=== PATIENT | female | born 1990 | race Caucasian/White ===

== ENCOUNTER 2017-06-11 17:45 | Emergency (ER) | payer SELFPAY ==
--- NOTE | 2017-06-11 17:53 | EDM.PDOC ---
ED HPI GENERAL MEDICAL PROBLEM - General Chief Complaint: Lower Extremity Injury/Pain Stated Complaint: PAIN LT ANKLE Time Seen by Provider: 06/11/17 17:52 Source of Information: Reports: Patient History Limitations: Reports: No Limitations - History of Present Illness INITIAL COMMENTS - FREE TEXT/NARRATIVE: HISTORY AND PHYSICAL: History of present illness: Patient is a 27-year-old female who presents to the emergency room today with complaints of left ankle pain and right wrist pain. She states earlier she fell down 2 or 3 steps which caused her to roll her left ankle and she caught herself with her right hand. He is complaining of left lateral ankle discomfort which increases with weight bearing. She previously had a ganglion cyst removed from the right wrist, a keloid scar is noted. She points to the area of the scar and states that the pain is located there, unsure if the cyst is returning or if she re-injured herself. She denies hitting her head or any loss of consciousness. Review of systems: As per history of present illness and below otherwise all systems reviewed and negative. Past medical history: As per history of present illness and as reviewed below otherwise noncontributory. Surgical history: As per history of present illness and as reviewed below otherwise noncontributory. Social history: No reported history of drug or alcohol abuse. Family history: As per history of present illness and as reviewed below otherwise noncontributory. Physical exam: General: Well-developed and well-nourished 27-year-old female. Nontoxic appearing. Alert and oriented. HEENT: Atraumatic, normocephalic, pupils equal and reactive bilaterally, negative for conjunctival pallor or scleral icterus, mucous membranes moist, throat clear, neck supple, nontender, trachea midline. No drooling or trismus noted. No meningeal signs Lungs: Clear to auscultation, breath sounds equal bilaterally, chest nontender. Heart: S1S2, regular rate and rhythm without overt murmur Abdomen: Soft, nondistended, nontender. Negative for masses or hepatosplenomegaly. Negative for costovertebral tenderness. Pelvis: Stable nontender. Genitourinary: Deferred. Rectal: Deferred. Skin: Intact, warm, dry. No lesions or rashes noted. Extremities: Moves all extremities per self without difficulty or deficits. Does have some left ankle discomfort when palpating on the lateral malleolus. No soft tissue swelling or edema noted. Strong pedal pulses bilaterally. Right wrist has some discomfort when palpating over a scar near the anterior radius. Strong grasp strength, good flexion/extension. Strong radial pulses bilaterally. +CMS. Cap refill less than 3 seconds. She is negative for cords or calf pain. Neurovascular unremarkable. Neuro: Awake, alert, oriented. Cranial nerves II through XII unremarkable. Cerebellum unremarkable. Motor and sensory unremarkable throughout. Exam nonfocal. Notes: X-ray shows mild soft tissue swelling of the wrist. No fracture or subluxation. X-ray is normal with no fracture or dislocations. Will provide her with a stirrup splint for the ankle and a cock up wrist splint for comfort for the wrist. Supportive care measures were reviewed. She voices understanding and is agreeable to plan of care. She denies any further questions at this time Diagnostics: Xray left ankle; right wrist Therapeutics: Ice, cock-up wrist splint, stirrup splint, crutches Impression: Left ankle injury Right wrist contusion Plan: 1. Rest, ice, elevate the affected extremities. Please wear the wrist splint and ankle brace as needed for comfort. 2. Tylenol and/or Ibuprofen as needed for pain management. 3. Follow up with the orthopedic provider in the next couple days if you continue to have pain. Return to the ED as needed and as discussed. Definitive disposition and diagnosis as appropriate pending reevaluation and review of above. Left Ankle Pain Score (Numeric/FACES): 6 - Related Data Allergies Allergy/AdvReac Type Severity Reaction Status Date / Time No Known Allergies Allergy Verified 06/11/17 17:53 Home Meds: Home Meds . [No Known Home Meds] 06/11/17 [History] Review of Systems - Review of Systems Review Of Systems: ROS reveals no pertinent complaints other than HPI. ED EXAM, GENERAL - Physical Exam Exam: See Below (See dictation) Course - Vital Signs Last Recorded V/S: Last Vital Signs Temp 98.0 F 06/11/17 17:51 Pulse 64 06/11/17 17:51 Resp 20 06/11/17 17:51 BP 114/61 06/11/17 17:51 Pulse Ox 100 06/11/17 17:51 - Orders/Labs/Meds Orders: Active Orders 24 hr Category Date Time Status Ankle 2V Lt [CR] Stat Exams 06/11/17 18:05 Ordered Wrist 2V Rt [CR] Stat Exams 06/11/17 18:05 Ordered Departure - Departure Time of Disposition: 18:37 Disposition: Home, Self-Care 01 Clinical Impression: Contusion of wrist, right Qualifiers: Encounter type: initial encounter Qualified Code(s): S60.211A - Contusion of right wrist, initial encounter Left ankle injury Qualifiers: Encounter type: initial encounter Qualified Code(s): S99.912A - Unspecified injury of left ankle, initial encounter - Discharge Information Referrals: PCP,None [Primary Care Provider] - Forms: ED Department Discharge Additional Instructions: The following information is given to patients seen in the emergency department who are being discharged to home. This information is to outline your options for follow-up care. We provide all patients seen in our emergency department with a follow-up referral. The need for follow-up, as well as the timing and circumstances, are variable depending upon the specifics of your emergency department visit. If you don't have a primary care physician on staff, we will provide you with a referral. We always advise you to contact your personal physician following an emergency department visit to inform them of the circumstance of the visit and for follow-up with them and/or the need for any referrals to a consulting specialist. The emergency department will also refer you to a specialist when appropriate. This referral assures that you have the opportunity for follow-up care with a specialist. All of these measure are taken in an effort to provide you with optimal care, which includes your follow-up. Under all circumstances we always encourage you to contact your private physician who remains a resource for coordinating your care. When calling for follow-up care, please make the office aware that this follow-up is from your recent emergency room visit. If for any reason you are refused follow-up, please contact the [facility] Emergency Department at and asked to speak to the emergency department charge nurse. [facility] [address] [place] [id number] [facility] [address], [address] [place] [address] 1. Rest, ice, elevate the affected extremities. Please wear the wrist splint and ankle brace as needed for comfort. 2. Tylenol and/or Ibuprofen as needed for pain management. 3. Follow up with the orthopedic provider in the next couple days if you continue to have pain. Return to the ED as needed and as discussed. - My Orders Last 24 Hours: My Active Orders 06/11/17 18:05 Ankle 2V Lt [CR] Stat Wrist 2V Rt [CR] Stat - Assessment/Plan Last 24 Hours: My Active Orders 06/11/17 18:05 Ankle 2V Lt [CR] Stat Wrist 2V Rt [CR] Stat
--- NOTE | 2017-06-12 09:33 | CR ---
EXAM DATE: 06/11/17 PATIENT'S AGE: 27 Patient: SABRINA GOMEZ Facility: [place], [place] Site . Site : 1990 Study: XRay Extremity Right Wrist [id number]/28/2018 6:28:53 PM Ordering Physician: Doctor Celestin Final Report: Indication: Fall Technique: Two views left wrist Comparison: None Findings: Bones: Alignment is normal. No fractures or bone lesions. Joint spaces: Unremarkable. Soft tissues: Mild soft tissue swelling along the dorsum of the wrist. Impression: Mild soft tissue swelling along the dorsum of the wrist. No acute fracture or subluxation. Dictated by Janeth Larios MD @ Jun 11 2017 6:33PM (Electronic Signature) Report Signed by Proxy. CHAVO
--- NOTE | 2017-06-12 09:34 | CR ---
EXAM DATE: 06/11/17 PATIENT'S AGE: 27 Patient: SABRINA GOMEZ Facility: [place], [place] Site . Site : 1990 Study: XRay Extremity Left Ankle-06/11/2017 6:29:19 PM Ordering Physician: Doctor Celestin Final Report: Indication: Fall Technique: Two views left ankle Comparison: None Findings: Bones: Alignment is normal. No fractures or bone lesions. Joint spaces: Unremarkable. Soft tissues: Unremarkable. Impression: Negative. Dictated by Janeth Larios MD @ Jun 11 2017 6:34PM (Electronic Signature) Report Signed by Proxy. CHAVO
== END 2017-06-11 19:05 | disposition home or self-care (01) ==
LOC: MW.ED 17:45
DX: S60.211A Contusion of right wrist, initial encounter (principal); S99.912A Unspecified injury of left ankle, initial encounter; W10.9XXA Fall (on) (from) unspecified stairs and steps, initial encounter
CPT/HCPCS: 73100-26-RT; 73100-RT; 73600-26-LT; 73600-LT; 99283